=== PATIENT | male | born 1985 | race Caucasian/White ===

== ENCOUNTER 2016-12-17 17:44 | Emergency (ER) | payer OTHER ==
[2016-12-17 17:59] VITALS: BP 141/87; PULSE 106; TEMP 101.8; BMI 28.1
[2016-12-17] MEDS ORDERED: IBUPROFEN 600 MG TABLET (FP) PO ONE (18:31)
--- NOTE | 2016-12-17 18:38 | PDOC ---
History of Present Illness - General Chief Complaint: Cold Symptoms Stated Complaint: COLD SYMPTOMS Time Seen by Provider: 12/17/16 18:05 - History of Present Illness Initial Comments: 12/17/16 18:32 CHIEF COMPLAINT: fever, sore throat HISTORY OF PRESENT ILLNESS: 31 yo M with no PMH presents to [facility] with sore throat and fever x 4 days. Patient denies cough or sneezing but reports body aches. Patient is here with his who is also ill with sore throat and otitis media; both recently traveled to . PAST MEDICAL HISTORY: Denies past medical history FAMILY HISTORY: Denies SOCIAL HISTORY: Denies tobacco, alcohol, illicit drug use. SURGICAL HISTORY: Denies ALLERGIES: No known drug allergies REVIEW OF SYSTEMS General/Constitutional: Fever x 4 days, TMax "like 101F" Denies weakness, weight change. HEENT: Denies change in vision. Denies ear pain or discharge. Denies sore throat. Cardiovascular: Denies chest pain or shortness of breath. Respiratory: Denies cough, wheezing, or hemoptysis. Gastrointestinal: Denies nausea, vomiting, diarrhea or constipation. Denies rectal bleeding. Genitourinary: Denies dysuria, frequency, or change in urination. Musculoskeletal: Neck and body aches . Skin and breasts: Denies rash or easy bruising. PHYSICAL EXAM General Appearance: Well-appearing, appropriately dressed. No apparent distress. HEENT: Mild erythema to oropharynx, no exudate to tonsils b/l. EOMI, PERRLA, normal ENT inspection, normal voice, TMs normal, pharynx normal. No conjunctival pallor. No photophobia, scleral icterus. Neck: No neck stiffness. Supple. Trachea midline. No tenderness, rigidity, carotid bruit, stridor, lymphadenopathy, or thyromegaly. Respiratory/Chest: Lungs CTAB. Cardiovascular: RRR. S1, S2. Gastrointestinal/Abdominal: Normal bowel sounds. Abdomen soft, non-distended. No tenderness or rebound tenderness. No organomegaly, pulsatile mass, guarding , hernia, hepatomegaly, splenomegaly. Musculoskeletal/Extremities: Normal inspection. FROM of all extremities, normal capillary refill. Pelvis Stable. No CVA tenderness. No tenderness to extremities, pedal edema, swelling, erythema or deformity. Integumentary: Appropriate color, dry, warm. No cyanosis, erythema, jaundice or rash Neurologic: vehicle washer II-XII intact. Fully oriented, alert. Appropriate mood/affect. Motor strength 5/5. No appreciable EOM palsy, facial droop or sensory deficit. 12/17/16 18:44 Past History - Past Medical History Allergies/Adverse Reactions: Allergies Allergy/AdvReac Type Severity Reaction Status Date / Time No Known Allergies Allergy Verified 12/17/16 17:54 Home Medications: Ambulatory Orders Amoxicillin - [Amoxicillin 875mg Tablet -] 875 mg PO BID #20 tablet 12/17/16 Other medical history: DENIES. - Immunization History Immunization Up to Date: Yes - Psycho/Social/Smoking Cessation Hx Anxiety: No Suicidal Ideation: No Smoking History: Never smoked Hx Alcohol Use: No Drug/Substance Use Hx: No Substance Use Type: None *Physical Exam - Vital Signs Last Vital Signs Temp Pulse Resp BP Pulse Ox 101.8 F H 106 H 22 141/87 97 12/17/16 17:54 12/17/16 17:54 12/17/16 17:54 12/17/16 17:54 12/17/16 17:54 Medical Decision Making - Medical Decision Making 12/17/16 18:36 31 yo M with no PMH presents to [facility] with sore throat and fever x 4 days -rapid strep Patient's is also ill with suppurative otitis media and sore throat. Will treat with amoxicillin. Amoxicillin rx sent to pharm. Advised patient to take medications as prescribed and f/u with primary care doctor on Tuesday. Advised patient of signs and symptoms for return to ER; patient verbalized understanding and agrees to plan. *DC/Admit/Observation/Transfer Diagnosis at time of Disposition: Pharyngitis Qualifiers: Pharyngitis/tonsillitis etiology: unspecified etiology Qualified Code(s): J02.9 - Acute pharyngitis, unspecified - Discharge Dispostion Disposition: HOME Condition at time of disposition: Stable Admit: No - Prescriptions Prescriptions: Amoxicillin - [Amoxicillin 875mg Tablet -] 875 mg PO BID #20 tablet - Referrals Referrals: Sascha Antonio MD [Staff Physician] - - Patient Instructions Printed Discharge Instructions: DI for Pharyngitis/Tonsillopharyngitis -- Adult Additional Instructions: Please take medications as prescribed. You may take Motrin for your body aches or fever. Drink lots of fluids to stay hydrated. If your symptoms persist past 4-5 days, please follow up with the ENT doctor (referral provided). If you experience fever unrelieved by Motrin, worsening pain, vomiting, headache, diarrhea, or any new or worsening symptoms, please return to the ER.
== END 2016-12-17 19:07 | disposition home or self-care (01) ==
LOC: JERFT 17:44
DX: J02.9 Acute pharyngitis, unspecified (principal)
CPT/HCPCS: 87070; 87430; 99281-25